=== PATIENT | female | born 1970 | race Caucasian/White ===

== ENCOUNTER 2019-02-12 10:44 | Day surgery (SDC) | payer OTHER ==
[2019-02-12] MEDS ORDERED: LR 1,000 ML IV ONE ×2 (11:18→11:23)
[2019-02-12] MEDS ORDERED: ROPIVACAINE HCL 150 MG/30 ML INJ ONE (11:52)
[2019-02-12] MEDS ORDERED: BUPIVACAINE 0.5% 30 ML SDV ONE (11:52)
[2019-02-12] MEDS ORDERED: BACITRACIN 50,000 UNITS/10 ML SYR IRR ONE (11:53)
[2019-02-12] MEDS ORDERED: LIDOCAINE 1% 300 MG/30 ML SDV ONE (11:54)
[2019-02-12] MEDS ORDERED: ceFAZolin 2 GM/DEXTROSE 100 ML IV ONE (12:06)
[2019-02-12] MEDS ORDERED: MIDAZOLAM 2 MG/2 ML VIAL IVP ONE (12:06)
[2019-02-12] MEDS ORDERED: SCOPOLAMINE HYDROBROMIDE 1 MG/3 DAYS PATCH TD ONE (12:06)
--- NOTE | 2019-02-12 12:18 | PDANEPAE ---
ANE Past Medical History - Cardiovascular History Hx Hypertension: No Hx Arrhythmias: No Hx Chest Pain: No Hx Coronary Artery / Peripheral Vascular Disease: No Hx CHF / Valvular Disease: No Hx Palpitations: No - Pulmonary History Hx COPD: No Hx Asthma/Reactive Airway Disease: No Hx Recent Upper Respiratory Infection: No Hx Oxygen in Use at Home: No Hx Sleep Apnea: No Sleep Apnea Screening Result - Last Documented: Negative - Neurologic History Hx Cerebrovascular Accident: No Hx Seizures: No Hx Dementia: No - Endocrine History Hx Diabetes: No - Renal History Hx Renal Disorders: No - Liver History Hx Hepatic Disorders: No - Neurological & Psychiatric Hx Hx Neurological and Psychiatric Disorders: No - Cancer History Hx Cancer: No - Congenital Disorder History Hx Congenital Disorders: No - GI History Hx Gastrointestinal Disorders: No - Other Health History Other Health History: none - Chronic Pain History Chronic Pain: No - Surgical History Prior Surgeries: x2. wisdom teeth extracted. uterine ablation ANE Review of Systems Review of Systems: - Exercise capacity METS (RN): 4 METS ANE Patient History - Allergies Allergies/Adverse Reactions: No Known Allergies Allergy (Verified 02/05/19 12:26) - Home Medications Home medications: home medication list seen and reviewed Home Medications: DULoxetine 02/05/19 [Last Taken 02/11/19] Herbals/Supplements -Info Only 02/05/19 [Last Taken 02/10/19] - NPO status NPO Since - Liquids (Date): 02/11/19 NPO Since - Liquids (Time): 22:25 NPO Since - Solids (Date): 02/11/19 NPO Since - Solids (Time): 20:45 - Smoking Hx Smoking Status: Former smoker - Family Anes Hx Family Hx Anesthesia Complications: none ANE Labs/Vital Signs - Vital Signs Vital Signs: reviewed preoperatively; see RN documention for details Blood Pressure: 145/101 Heart Rate: 81 Respiratory Rate: 15 O2 Sat (%): 94 Height: 170.18 cm Weight: 86.183 kg ANE Physical Exam - Airway Neck exam: FROM Mallampati Score: Class 1 Mouth exam: normal dental/mouth exam - Pulmonary Pulmonary: clear to auscultation - Cardiovascular Cardiovascular: regular rate and rhythym - ASA Status ASA Status: II ANE Anesthesia Plan Anesthesia Plan: MAC
[2019-02-12] MEDS ORDERED: PROPOFOL/EMULSION 500 MG/50 ML BOTTLE IV ONE ×2 (12:29→13:18)
--- NOTE | 2019-02-12 12:44 | PDHPUP ---
History & Physical Update H&P update statement: This history and physical update is based on an assessment of the patient which was completed after admission or registration (within 24 hours), but prior to the surgery/procedure. H&P update: H&P reviewed & patient examined (no changes in health), no change in patient's condition since H&P completed
[2019-02-12] MEDS ORDERED: NALOXONE HCL 0.4 MG/ML INJ IVP PRN (14:08)
[2019-02-12] MEDS ORDERED: fentaNYL 100 MCG/2 ML INJ IVP PRN (14:09)
[2019-02-12] MEDS ORDERED: LR 500 ML IV PRN (14:09)
[2019-02-12] MEDS ORDERED: ONDANSETRON 4 MG/2 ML VIAL IVP PRN (14:09)
[2019-02-12] MEDS ORDERED: oxyCODONE IR 5 MG TAB PO PRN (14:09)
[2019-02-12] MEDS ORDERED: DIAZEPAM 5 MG/ML 1 ML SYR IVP PRN (14:09)
[2019-02-12] MEDS ORDERED: PROMETHAZINE HCL 25 MG/ML INJ IVP PRN (14:09)
[2019-02-12] MEDS ORDERED: LABETALOL HCL 5 MG/ML 20 ML MDV IVP PRN (14:09)
[2019-02-12] MEDS ORDERED: DEXAMETHASONE 4 MG/ML VIAL IVP PRN (14:09)
[2019-02-12] MEDS ORDERED: HYDROmorphONE/DILAUDID 2 MG/ML INJ IVP PRN (14:09)
[2019-02-12] MEDS ORDERED: KETOROLAC 30 MG/1 ML SDV ONE (14:14)
--- NOTE | 2019-02-12 14:41 | POSTOPPROG ---
Post Op Note Date of Operation: 02/12/19 Surgeon: Aniyah Luevano Seat Installer: Claritza Luevano Anesthesiologist: Shayy Jackson MD Pre-op Diagnosis: Hallux Rigidus left foot Post-op Diagnosis: same, limited degenerative joint disease Indication: pain joint Procedure: decompression osteotomy distal first MT with cheilectomy MPJ, left Findings: degenerative joint disease, thinning and erosion of some articular cartilag Inf/Abcess present in the surg proc area at time of surgery?: No Complications: none
--- NOTE | 2019-02-12 15:37 | POSTANESTH ---
Post Anesthetic Evaluation Cardiovascular Status: Normal, Stable Respiratory Status: Normal, Stable Level of Consciousness/Mental Status: Can Participate in Eval Pain Control: Adequate, Prn Tx Ordered Nausea/Vomiting Control: Adequate, Prn Tx Ordered Complications Possibly Related to Anesthesia: None Noted
[2019-02-12 15:39] VITALS: BP 130/88
--- NOTE | 2019-02-12 16:49 | GOP ---
[f rep st] OPERATIVE REPORT DATE OF OPERATION: 02/12/2019 SURGEON: Aniyah Luevano DPM HOME PARAPROFESSIONAL: Claritza Luevano DPM ANESTHESIA: IV sedation with local, light general. ANESTHESIOLOGIST: Shayy Jackson MD PREOPERATIVE DIAGNOSIS: Painful hallux rigidus, left foot. POSTOPERATIVE DIAGNOSIS: Painful hallux rigidus with some degenerative joint disease. PROCEDURE PERFORMED: Cheilectomy 1st metatarsophalangeal joint with decompression osteotomy distal 1st metatarsal, left foot. FINDINGS: articular defects, thinning of articular cartilage to both the head first MT and base proximal phalanx DESCRIPTION OF PROCEDURE: Patient presented to the hospital approximately an hour and a half prior to foot surgery after having been n.p.o. past midnight. Patient's preoperative history and physical and all lab studies were reviewed and there are no contraindications to the proposed procedure. The patient was given Ancef 2 g IV 0.5 hour prior to foot surgery. Patient taken to the OR room and placed on OR table in supine position where the appropriate anesthetic agents were administered. This was supplemented with a total of 10 cc of 0.5% ropivacaine with 5 cc of 1% lidocaine plain. The left lower extremity was then prepped and draped in usual aseptic fashion and covered with a sterile stockinette. A sterile pneumatic ankle tourniquet was applied and padded well underneath with Webril. Utilizing elevation overlying Esmarch bandage, the left foot was exsanguinated and the tourniquet was inflated to a pressure of 250 mmHg. The foot was then lowered to the orthopedic table. Attention was then directed to the dorsal aspect of the 1st metatarsophalangeal joint where an approximate 5 cm linear longitudinal incision was made. This incision was made medial to the extensor hallucis longus tendon. Incision was deepened through the subcutaneous tissues to the level of the capsular tissues taking care to preserve the neurovascular structures. Any bleeders were clamped and cauterized as needed. A linear capsular incision was performed and the capsular tissues reflected off the dorsal aspect of the 1st metatarsal head , base of the distal phalanx, and medial aspects. There was exuberant hypertrophic bone and a loose osteophyte dorsal base of the proximal phalanx. The osteophyte was resected and placed on the back table. The 1st metatarsal head was inspected and there was an articular defect to the ventral lateral one-third of the 1st metatarsal head where there was absence of articular cartilage. Similar findings were noted to the base of the proximal phalanx to the lateral one-third where the articular cartilage was denuded to the level of subchondral bone. The hypertrophic bone to the lateral aspect base of the proximal phalanx was resected and also from the dorsal aspect head of the 1st metatarsal. Additional bone was resected from the dorsal aspect of the base of the proximal phalanx. Drill holes were created through the area of the articular defect. The surgical site was copiously irrigated with sterile saline bacitracin solution. A K-wire was then advanced in a medial to lateral direction through the plantar distal aspect of the 1st metatarsal head to serve as an axis guide for the 2 osteotomies. Utilizing Patrick guide, 2 osteotomies were then created to the distal 1st metatarsal so as to excise a dorsally wedge piece of bone. The first osteotomy was initiated with K-wire extended dorsally and proximally. Second osteotomy was more oblique and also extended dorsally and proximally. The dorsal wedge of bone was resected and placed on the back table. The wedge of bone measured approximately 3 mm in width dorsally. The K- wire was removed and the 1st metatarsal head was tilted gently proximally and the plantar hinge was preserved. The ostomy site was closed and temporarily fixated with 2 guidewires, which were placed in a dorsal distal to plantar proximal direction crossing the osteotomy site. Utilizing the standard Arthrex headless screw system, 2 headless 2.5 screws were placed over the guidewires after they were prepared with the drill. The K-wires were removed and the osteotomy site was flush and stable. A C-arm was utilized to evaluate alignment, which was optimal. Any remaining prominent bony borders were remodeled to a smooth surface utilizing the bone rasp. Surgical site was copiously irrigated with sterile saline bacitracin solution. Range of motion was smooth and concentric. The capsular tissues reapproximated with 2-0 Vicryl. The tourniquet was released, and there was immediate capillary refill to all digits and hemostasis. The subcutaneous tissues reapproximated with 4-0 Monocryl and the skin with 4-0 Prolene utilizing interrupted horizontal mattress sutures. Steri-Strips were applied. A mildly compressive dry sterile gauze dressing applied with Xeroform, 4 x 4 gauze, Caitlyn and an Rufino wrap. Patient tolerated the procedure and anesthesia well and was transferred to recovery room with vital signs stable and vascular status intact to left lower extremity. In the recovery room, the patient received postoperative oral and written home care instructions. The patient instructed to wear the cast boot at all times when ambulating and is to bear weight primarily on the heel to off weight the forefoot. Patient was dispensed a Cryo/Cuff and instructed on its usage. Prescription was given for Percocet to take postoperatively as prescribed for pain management. Postoperative radiographs were ordered. The patient is scheduled for first postoperative visit in 3 days, but to call the office earlier if any questions or problems should arise. /[id number]/MODL MTDD
== END 2019-02-12 15:48 | disposition home or self-care (01) ==
LOC: FSGY 10:44
PROVIDERS: ATTEND Podiatrist
PROC: 0SBN0ZZ Excision of Left Metatarsal-Phalangeal Joint, Open Approach (ICD-10-PCS; principal; 2019-02-12 12:15)
PROC: 0QBP0ZZ Excision of Left Metatarsal, Open Approach (ICD-10-PCS; principal; 2019-02-12 12:15)
DX: M20.22 Hallux rigidus, left foot (principal)
CPT/HCPCS: C1713; J0690; J1885; J2250; J2704; J2795